=== PATIENT | male | born 1965 | race Caucasian/White ===

== ENCOUNTER 2024-07-01 07:32 | Oncology outpatient (recurring) (ONCR) | payer MEDICAID, SELFPAY | END 2024-07-26 23:59 | disposition home or self-care (01) | PROVIDERS: PCP Family Medicine; Visit Provider Internal Medicine Medical Oncology | DX: C18.1 Malignant neoplasm of appendix (principal) | CPT/HCPCS: 99205 ==

== ENCOUNTER 2024-12-03 14:54 | Oncology outpatient (recurring) (ONCR) | payer MEDICAID, SELFPAY ==
[2024-12-03] MEDS: iohexol 350 mg/mL 500 mL Btl (per mL) PO (15:02)
[2024-12-03] MEDS: iohexol 350 mg/mL 500 mL Btl (per mL) IV (16:00)
--- NOTE | 2024-12-03 16:30 | CTR_ITS ---
PROCEDURE INFORMATION: Exam: CT Chest With Contrast; Diagnostic Exam date and time: 12/03/2024 3:58 PM Age: 59 years old Clinical indication: Condition or disease; Other: Primary appendiceal adenocarcinoma; Prior surgery; Surgery date: 1-6 months; Surgery type: Appy then a few days later colon 05/2024 TECHNIQUE: Imaging protocol: Diagnostic computed tomography of the chest with contrast. Radiation optimization: All CT scans at this facility use at least one of these dose optimization techniques: automated exposure control; mA and/or kV adjustment per patient size (includes targeted exams where dose is matched to clinical indication); or iterative reconstruction. Contrast material: OMNI 350; Contrast volume: 100 ml; Contrast route: INTRAVENOUS (IV); COMPARISON: No relevant prior studies available. RADIATION DOSE METRICS: Total DLP (mGy-cm): 738.22 FINDINGS: Lungs: 3 mm right lower lobe calcification near the diaphragmatic pleural surface. 13 mm atelectatic focus in the lingula. Pleural spaces: Unremarkable. No pneumothorax. No pleural effusion. Heart: Unremarkable. No cardiomegaly. No pericardial effusion. Lymph nodes: Subcarinal and right hilar calcified nodes. No meli enlargement. Vasculature: Unremarkable. No aortic aneurysm. Bones/joints: No suspicious lytic or sclerotic lesions. Soft tissues: Unremarkable. PROCEDURE INFORMATION: Exam: CT Abdomen And Pelvis With Contrast Exam date and time: 12/03/2024 3:58 PM Age: 59 years old Clinical indication: Condition or disease; Other: Primary appendiceal adenocarcinoma; Prior surgery; Surgery date: 1-6 months; Surgery type: Appy then a few days later colon 05/2024 TECHNIQUE: Imaging protocol: Computed tomography of the abdomen and pelvis with contrast. Radiation optimization: All CT scans at this facility use at least one of these dose optimization techniques: automated exposure control; mA and/or kV adjustment per patient size (includes targeted exams where dose is matched to clinical indication); or iterative reconstruction. Contrast material: OMNI 350; Contrast volume: 100 ml; Contrast route: INTRAVENOUS (IV); COMPARISON: No relevant prior studies available. RADIATION DOSE METRICS: Total DLP (mGy-cm): 738.22 FINDINGS: Liver: Normal. No mass. Gallbladder and biliary ducts: Normal. No calcified stones. No ductal dilation. Pancreas: Normal. No ductal dilation. Spleen: Normal. No splenomegaly. Adrenal glands: 9 mm left adrenal nodule . Kidneys and ureters: Normal. No hydronephrosis. Stomach and bowel: Previous ascending colon resection. Bowel caliber is normal. No pericolonic inflammatory changes. Appendix: No evidence of appendicitis. Intraperitoneal space: No free intraperitoneal fluid or gas. Vasculature: Unremarkable. No abdominal aortic aneurysm. Lymph nodes: Unremarkable. No enlarged lymph nodes. Urinary bladder: Unremarkable as visualized. Reproductive: Unremarkable as visualized. Bones/joints: Severe degenerative changes in both hips. Severe degenerative disc disease at L5-S1. No suspicious lytic or sclerotic lesions. Soft tissues: Unremarkable. CT/CT chest abdpel w/*[id number] IMPRESSION: 1. No evidence for metastatic disease to the chest. 2. Evidence of previous granulomatous disease. IMPRESSION: 1. 9 mm left adrenal nodule. If not previously characterized, this can be further evaluated with nonemergent adrenal protocol CT or MRI. 2. No other evidence for residual or recurrent neoplasm in the abdomen or pelvis. COMMENTS: Consistent with the [employer]'s Incidental Findings Committee white paper (J Am Emile Radiol 2017): Any incidental adrenal lesion less than 1 cm is likely benign. No follow-up imaging is recommended for these lesions per consensus recommendations based on imaging criteria. Further lab evaluation could be pursued if warranted based on clinical findings.
[2024-12-03 17:12] LABS: Hematocrit 45.6 % (37-53); Hemoglobin 15.40 g/dL (11.27-16.99); Mean Corpuscular HGB Conc 33.8 g/dL (30-55); Mean Corpuscular Hemoglobin 31.0 pg (27-33); Mean Corpuscular Volume 91.8 fl (82-101); Nucleated Red Blood Cells % 0 %; Platelet Count 251 10^3/cmm (157-399); Red Blood Count 4.97 10^6/uL (3.85-5.65); White Blood Count 6.33 10^3/uL (3.29-11.43)
[2024-12-03 17:21] LABS: Carcinoembryonic Antigen 1.6 ng/mL (0.0-4.7)
[2024-12-03 17:32] LABS: Albumin Level 4.8 g/dL (3.5-5.2); Alkaline Phosphatase 87 U/L (40-130); Blood Urea Nitrogen 21 mg/dL (6-20); Calcium 9.9 mg/dL (8.5-10.5); Carbon Dioxide 24 mmol/L (22-29); Chloride 101 mmol/L (98-107); Globulin 3.4 g/dL (1.3-4.6); Glucose 103 mg/dL (65-115); Osmolality Calculated 291 mOsm/kg (285-295); Sodium 139 mmol/L (136-145); Total Protein 8.2 g/dL (6.6-8.7)
[2024-12-03 17:36] LABS: Alanine Aminotransferase 21 U/L (0-41); Anion Gap 19.2 (5-19); Aspartate Amino Transferase 29 U/L (0-40); Potassium 5.2 mmol/L (3.5-5.1)
== END 2024-12-26 23:59 | disposition home or self-care (01) ==
LOC: ONCMED 14:55
PROVIDERS: PCP Family Medicine; Visit Provider Internal Medicine Medical Oncology
DX: C18.1 Malignant neoplasm of appendix (principal)
CPT/HCPCS: 36415; 71260; 74177; 80053; 82378; 85025

== ENCOUNTER 2025-01-05 12:00 | Oncology outpatient (recurring) (ONCR) | payer MEDICAID, SELFPAY ==
[2025-01-05 12:20] LABS: Hematocrit 41.5 % (37-53); Hemoglobin 14.00 g/dL (11.27-16.99); Mean Corpuscular HGB Conc 33.7 g/dL (30-55); Mean Corpuscular Hemoglobin 31.4 pg (27-33); Mean Corpuscular Volume 93.0 fl (82-101); Nucleated Red Blood Cells % 0 %; Platelet Count 251 10^3/cmm (157-399); Red Blood Count 4.46 10^6/uL (3.85-5.65); White Blood Count 6.67 10^3/uL (3.29-11.43)
[2025-01-05 12:50] LABS: Carcinoembryonic Antigen 1.6 ng/mL (0.0-4.7)
[2025-01-05 13:01] LABS: Alanine Aminotransferase 16 U/L (0-41); Albumin Level 4.1 g/dL (3.5-5.2); Alkaline Phosphatase 72 U/L (40-130); Anion Gap 16.3 (5-19); Aspartate Amino Transferase 17 U/L (0-40); Blood Urea Nitrogen 20 mg/dL (6-20); Calcium 9.2 mg/dL (8.5-10.5); Carbon Dioxide 22 mmol/L (22-29); Chloride 108 mmol/L (98-107); Globulin 2.7 g/dL (1.3-4.6); Glucose 113 mg/dL (65-115); Osmolality Calculated 297 mOsm/kg (285-295); Potassium 4.3 mmol/L (3.5-5.1); Sodium 142 mmol/L (136-145); Total Protein 6.8 g/dL (6.6-8.7)
== END 2025-01-25 23:59 | disposition home or self-care (01) ==
PROVIDERS: PCP Family Medicine; Visit Provider Internal Medicine Medical Oncology
DX: C18.1 Malignant neoplasm of appendix (principal)
CPT/HCPCS: 36415; 80053; 82378; 85025